=== PATIENT | male | born 1985 | race Two or more races ===

== ENCOUNTER 2021-04-14 07:58 | Emergency (ER) | payer SELFPAY ==
[~2021-04-14] VITALS: Ht 172.7 cm; Wt 103.3 kg
--- NOTE | 2021-04-14 08:04 | PHYS DOC ---
General Adult HPI: HPI: Patient is a 35 year old male here with report of mid lower sternal chest pain, which began at 10 AM yesterday. The pain is been constant, does not radiate, described as sharp, and worse with heavy lifting and some movements. He denies pleuritic pain. Denies cough. Denies dyspnea. Denies dizziness or diaphor esis. Denies lower extremity pain or swelling. Denies exertional chest pain or exertional dyspnea. He denies recent surgery, trauma, hospitalization or travel history. He works at [employer] and does a lot of heavy lifting at work, this seems to reproduce his pain. He has not taken anything for pain today. No changes in symptoms this morning. He has no reported known medical problems. He takes no prescription medications. He denies any family history of early coronary disease or sudden cardiac . Review of Systems: Review of Systems: Constitutional: Denies fever or chills. [] HENT: Denies nasal congestion or sore throat. [] Respiratory: Denies cough or shortness of breath. [] Cardiovascular: Reports mid lower sternal chest pain. Denies peripheral edema. Denies syncope. GI: Denies abdominal pain, nausea, vomiting, or bowel habit changes. : Denies urinary symptoms. Musculoskeletal: Denies back pain or joint pain. [] Integument: Denies rash. Denies diaphoresis. Neurologic: Denies headache, focal weakness or sensory changes. [] Psychiatric: Denies mood changes. [] Heart Score: C/O Chest Pain: Yes HEART Score for Chest Pain: HEART Score for Chest Pain Response (Comments) Value ECG Nonspecific Repolarizatio 1 Age < 45 0 Risk Factors No Risk Factors 0 Troponin < Normal Limit 0 Total 1 Risk Factors: Risk Factors: DM, Current or recent (<one month) smoker, HTN, HLP, family history of CAD, obesity. Risk Scores: Score 0 - 3: 2.5% MACE over next 6 weeks - Discharge Home Score 4 - 6: 20.3% MACE over next 6 weeks - Admit for Clinical Observation Score 7 - 10: 72.7% MACE over next 6 weeks - Early Invasive Strategies Physical Exam: PE: Constitutional: Well developed, well nourished, no acute distress, non-toxic appearance. [] HENT: Normocephalic, atraumatic, mucous membranes are moist. Eyes: Sclera clear and anicteric. Neck: Normal range of motion, no tenderness, supple, no stridor. [] Cardiovascular:Heart rate regular rhythm, no murmur, +2 posterior tibial and radial pulses bilaterally. Lungs & Thorax: Bilateral breath sounds clear to auscultation, no rales, rhonchi or wheezes. Equal chest rise. No distress. Abdomen: Abdomen is soft, nondistended, nontender to palpation, normal bowel sounds, no palpable mass organomegaly. Skin: Warm, dry, no erythema, no rash. [] Back: No tenderness, no CVA tenderness. [] Extremities: No tenderness, no cyanosis, no clubbing, ROM intact, no edema. No calf tenderness. Neurologic: Alert and oriented X 3, speech is clear and fluent, no facial asymmetry, ambulatory with a steady gait, gross motor function appears to be normal. Psychologic: Affect normal, judgement normal, mood normal. [] EKG: EKG: [place] 0802 Rhythm is sinus Rate is 65 bpm [place] is normal Baseline artifact No STEMI EKG is interpreted at 0905 Rhythm is sinus Rate is 61 bpm [place] is normal No STEMI Radiology/Procedures: Radiology/Procedures: IMAGING REPORT Signed PATIENT: YESSENIA CONWAY ACCOUNT: [id number] : 1985 LOCATION: ER AGE: 35 SEX: M EXAM STATUS: PRE ER ORD. PHYSICIAN: JUDSON HERNADEZ DO REASON: chest pain PROCEDURE: PORTABLE CHEST 1V XR CHEST 1V History: Reason: chest pain / Spl. Instructions: / History: Comparison: None. Findings: No consolidation or pleural effusion. Normal heart size. No pneumothorax. Impression: 1. No acute cardiopulmonary process. Electronically signed by: Ruy Carbajal DO (04/14/2021 9:14 AM) [id number] DICTATED and SIGNED BY: RUY CARBAJAL DO DATE: 04/14/21 [id number] 0 Course & Med Decision Making: Course & Med Decision Making Pertinent Labs and Imaging studies reviewed. (See chart for details) IV Toradol was given for pain. He is resting comfortably. He manifests no evidence of distress. Troponin is negative. He has had pain for nearly 24 hours, no obvious acute myocardial ischemia demonstrated based on objective findings here in the emergency department. No current indication for admission at this time. He is relieved to hear of the findings here. He requested a work excuse, as does his significant other, this is provided. I strongly encouraged him to follow-up with a primary care physician, and if symptoms persist he will need to see outpatient cardiology. Return precautions are given. He is comfortable with the plan of care. Dragon Disclaimer: Dragon Disclaimer: This electronic medical record was generated, in whole or in part, using a voice recognition dictation system. Departure Departure Impression: Primary Impression: Atypical chest pain Disposition: HOME / SELF CARE / HOMELESS Condition: STABLE Referrals: BIJAL JACKMAN MD Patient Instructions: Chest Pain (Nonspecific) Additional Instructions: You may take [id number] Tylenol and ibuprofen for pain. Return for more severe pain, shortness of breath, coughing up blood, fever 100.4 or higher, severe dizziness, abdominal pain, vomiting, or any other concerns. Please follow-up with your primary care physician. If your symptoms persist, you should follow-up with outpatient cardiology as well. JUDSON HERNADEZ DO Apr 14, 2021 08:04
[2021-04-14] MEDS ORDERED: KETOROLAC 15 MG/ML VIAL. IVP ONE (08:15)
--- NOTE | 2021-04-14 08:34 | EKG ---
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
[2021-04-14 08:45] LABS: BASO % 1 % (0-3); EOS # 0.3 x10^3/uL (0.0-0.7); EOS % 4 % (0-3); HEMATOCRIT 43.1 % (39.0-53.0); HEMOGLOBIN 14.6 g/dL (13.0-17.5); LYMPH # 1.3 x10^3/uL (1.0-4.8); LYMPH % 19 % (24-48); MEAN CORPUSCULAR HEMOGLOBIN 28 pg (25-35); MEAN CORPUSCULAR HGB CONC 34 g/dL (31-37); MEAN CORPUSCULAR VOLUME 82 fL (79-100); MONO # 0.5 x10^3/uL (0.0-1.1); MONO % 7 % (0-9); NEUT # 4.8 x10^3/uL (1.8-7.7); NEUT % 69 % (31-73); PLATELET COUNT 293 x10^3/uL (140-400); RED BLOOD COUNT 5.26 x10^6/uL (4.30-5.70); RED CELL DISTRIBUTION WIDTH 12.7 % (11.5-14.5); WHITE BLOOD COUNT 6.9 x10^3/uL (4.0-11.0)
[2021-04-14 08:51] LABS: CREATININE 0.9 mg/dL (0.7-1.3); GFR 97.2; POTASSIUM 3.6 mmol/L (3.5-5.1)
[2021-04-14 08:57] LABS: ALBUMIN 3.7 g/dL (3.4-5.0); ALBUMIN/GLOBULIN RATIO 0.9 (1.0-1.7); MAGNESIUM 1.9 mg/dL (1.8-2.4); TOTAL BILIRUBIN 0.2 mg/dL (0.2-1.0)
--- NOTE | 2021-04-14 09:17 | RAD ---
XR CHEST 1V History: Reason: chest pain / Spl. Instructions: / History: Comparison: None. Findings: No consolidation or pleural effusion. Normal heart size. No pneumothorax. Impression: 1. No acute cardiopulmonary process. Electronically signed by: Ruy Carbajal DO (04/14/2021 9:14 AM) [id number]
--- NOTE | 2021-04-14 09:39 | EKG ---
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
[2021-04-14 10:04] VITALS: BP 126/68
== END 2021-04-14 10:08 | disposition home or self-care (01) ==
LOC: ER 07:58
DX: R07.2 Precordial pain (principal)
CPT/HCPCS: 36415; 71045; 80053; 83690; 83735; 84484; 85025; 85379; 93005; 96374; 99285; J1885